=== PATIENT | female | born 1955 | race Caucasian/White ===

== ENCOUNTER 2023-08-13 14:23 | Outpatient (AMB) | payer MEDICARE, SELFPAY ==
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
== END 2023-08-13 16:11 | disposition home or self-care (01) ==
LOC: HO.HOP 14:23
PROVIDERS: PCP Registered Nurse Oncology; Visit Provider Clinical Nurse Specialist Psychiatric/Mental Health
DX: F33.1 Major depressive disorder, recurrent, moderate (principal); F43.12 Post-traumatic stress disorder, chronic
CPT/HCPCS: 99215

== ENCOUNTER → 2023-08-13 14:23 | Outpatient (BNVA) | payer MEDICARE, SELFPAY | PROVIDERS: PCP Registered Nurse Oncology; Visit Provider Clinical Nurse Specialist Psychiatric/Mental Health | DX: F33.1 Major depressive disorder, recurrent, moderate (principal); F43.12 Post-traumatic stress disorder, chronic | CPT/HCPCS: 99212 ==

== ENCOUNTER 2023-09-06 14:15 | Outpatient (AMB) | payer MEDICARE, SELFPAY ==
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
== END 2023-09-06 15:01 | disposition home or self-care (01) ==
LOC: HO.HOP 14:15
PROVIDERS: PCP Registered Nurse Oncology; Visit Provider Clinical Nurse Specialist Psychiatric/Mental Health
DX: R45.4 Irritability and anger (principal); F43.12 Post-traumatic stress disorder, chronic
CPT/HCPCS: 99215

== ENCOUNTER → 2023-09-06 14:15 | Outpatient (BNVA) | payer MEDICARE, SELFPAY | PROVIDERS: PCP Registered Nurse Oncology; Visit Provider Clinical Nurse Specialist Psychiatric/Mental Health | DX: R45.4 Irritability and anger (principal); F43.12 Post-traumatic stress disorder, chronic | CPT/HCPCS: 99212 ==

== ENCOUNTER 2023-10-05 11:03 | Outpatient (AMB) | payer MEDICARE, SELFPAY ==
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
== END 2023-10-05 11:43 | disposition home or self-care (01) ==
LOC: HO.HOP 11:03
PROVIDERS: PCP Registered Nurse Oncology; Visit Provider Clinical Nurse Specialist Psychiatric/Mental Health
DX: F43.12 Post-traumatic stress disorder, chronic (principal); F07.81 Postconcussional syndrome; F33.1 Major depressive disorder, recurrent, moderate
CPT/HCPCS: 99214

== ENCOUNTER → 2023-10-05 11:03 | Outpatient (BNVA) | payer MEDICARE, SELFPAY | PROVIDERS: PCP Registered Nurse Oncology; Visit Provider Clinical Nurse Specialist Psychiatric/Mental Health | DX: F43.12 Post-traumatic stress disorder, chronic (principal); F33.1 Major depressive disorder, recurrent, moderate; F07.81 Postconcussional syndrome | CPT/HCPCS: 99212 ==

== ENCOUNTER 2023-11-15 11:17 | Outpatient (AMB) | payer MEDICARE, SELFPAY ==
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
== END 2023-11-15 11:32 | disposition home or self-care (01) ==
LOC: HO.HOP 11:17
PROVIDERS: PCP Registered Nurse Oncology; Visit Provider Clinical Nurse Specialist Psychiatric/Mental Health
DX: F43.12 Post-traumatic stress disorder, chronic (principal); F33.1 Major depressive disorder, recurrent, moderate
CPT/HCPCS: 99443

== ENCOUNTER → 2023-11-15 11:17 | Outpatient (BNVA) | payer MEDICARE, SELFPAY | PROVIDERS: PCP Registered Nurse Oncology; Visit Provider Clinical Nurse Specialist Psychiatric/Mental Health ==

== ENCOUNTER 2023-11-27 16:00 | Outpatient (AMB) | payer MEDICARE, SELFPAY ==
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
== END 2023-11-27 16:51 | disposition home or self-care (01) ==
LOC: HO.HOP 16:00
PROVIDERS: PCP Registered Nurse Oncology; Visit Provider Clinical Nurse Specialist Psychiatric/Mental Health
DX: F43.12 Post-traumatic stress disorder, chronic (principal); F33.1 Major depressive disorder, recurrent, moderate
CPT/HCPCS: 99215

== ENCOUNTER → 2023-11-27 16:00 | Outpatient (BNVA) | payer MEDICARE, SELFPAY | PROVIDERS: PCP Registered Nurse Oncology; Visit Provider Clinical Nurse Specialist Psychiatric/Mental Health | DX: F43.12 Post-traumatic stress disorder, chronic (principal); F33.1 Major depressive disorder, recurrent, moderate | CPT/HCPCS: 99212 ==

== ENCOUNTER 2023-12-24 15:00 | Outpatient (AMB) | payer MEDICARE, SELFPAY ==
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
== END 2023-12-24 18:36 | disposition home or self-care (01) ==
LOC: HO.HOP 15:00
PROVIDERS: PCP Registered Nurse Oncology; Visit Provider Clinical Nurse Specialist Psychiatric/Mental Health
DX: F43.12 Post-traumatic stress disorder, chronic (principal); F33.1 Major depressive disorder, recurrent, moderate
CPT/HCPCS: 90833; 99214

== ENCOUNTER → 2023-12-24 15:00 | Outpatient (BNVA) | payer MEDICARE, SELFPAY | PROVIDERS: PCP Registered Nurse Oncology; Visit Provider Clinical Nurse Specialist Psychiatric/Mental Health | DX: F43.12 Post-traumatic stress disorder, chronic (principal); F33.1 Major depressive disorder, recurrent, moderate | CPT/HCPCS: 99212 ==

== ENCOUNTER 2024-02-11 13:33 | Outpatient (AMB) | payer MEDICARE, SELFPAY ==
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
== END 2024-02-11 14:14 | disposition home or self-care (01) ==
LOC: HO.HOP 13:34
PROVIDERS: PCP Registered Nurse Oncology; Visit Provider Clinical Nurse Specialist Psychiatric/Mental Health
DX: F43.12 Post-traumatic stress disorder, chronic (principal); F33.1 Major depressive disorder, recurrent, moderate
CPT/HCPCS: 90833; 99214

== ENCOUNTER → 2024-02-11 13:33 | Outpatient (BNVA) | payer MEDICARE, SELFPAY | PROVIDERS: PCP Registered Nurse Oncology; Visit Provider Clinical Nurse Specialist Psychiatric/Mental Health | DX: F33.1 Major depressive disorder, recurrent, moderate (principal); F43.12 Post-traumatic stress disorder, chronic | CPT/HCPCS: 99212 ==

== ENCOUNTER 2024-04-07 14:13 | Outpatient (AMB) | payer MEDICARE, SELFPAY ==
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
== END 2024-04-07 15:26 | disposition home or self-care (01) ==
LOC: HO.HOP 14:13
PROVIDERS: PCP Registered Nurse Oncology; Visit Provider Clinical Nurse Specialist Psychiatric/Mental Health
DX: F43.12 Post-traumatic stress disorder, chronic (principal); F33.1 Major depressive disorder, recurrent, moderate
CPT/HCPCS: 99214

== ENCOUNTER → 2024-04-07 14:13 | Outpatient (BNVA) | payer MEDICARE, SELFPAY | PROVIDERS: PCP Registered Nurse Oncology; Visit Provider Clinical Nurse Specialist Psychiatric/Mental Health | DX: F33.1 Major depressive disorder, recurrent, moderate (principal); F43.12 Post-traumatic stress disorder, chronic; Z71.89 Other specified counseling | CPT/HCPCS: 99212 ==

== ENCOUNTER → 2024-06-13 13:04 | Outpatient (BNVA) | payer MEDICARE, SELFPAY | PROVIDERS: PCP Registered Nurse Oncology; Visit Provider Clinical Nurse Specialist Psychiatric/Mental Health | DX: F43.12 Post-traumatic stress disorder, chronic (principal); F33.1 Major depressive disorder, recurrent, moderate | CPT/HCPCS: 99212 ==

== ENCOUNTER 2024-08-05 13:32 | Outpatient (AMB) | payer MEDICARE, SELFPAY ==
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
== END 2024-08-05 13:35 | disposition home or self-care (01) ==
LOC: HO.HOP 13:32
PROVIDERS: PCP Registered Nurse Oncology; Visit Provider Clinical Nurse Specialist Psychiatric/Mental Health
DX: F43.12 Post-traumatic stress disorder, chronic (principal); F33.1 Major depressive disorder, recurrent, moderate
CPT/HCPCS: 99214

== ENCOUNTER → 2024-08-05 13:32 | Outpatient (BNVA) | payer MEDICARE, SELFPAY | PROVIDERS: PCP Registered Nurse Oncology; Visit Provider Clinical Nurse Specialist Psychiatric/Mental Health | DX: F43.12 Post-traumatic stress disorder, chronic (principal); F33.1 Major depressive disorder, recurrent, moderate | CPT/HCPCS: 99212 ==

== ENCOUNTER 2024-09-23 13:37 | Outpatient (AMB) | payer MEDICARE, SELFPAY ==
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
--- OUTSIDE RECORDS SUMMARY | 2024-09-23 14:57 | XMS_ITS | Data Portability ---
Author Organization [facility] [employer], [employer] Address [address] [place] [address] [place] [address] Care Team Providers Care Obstetrical Tech Name Role Phone CELIA VILLAFANA Primary Care [...] 2020 LABORATORIES: Thyroid studies, comprehensive metabolic panel [facility]: Brain MRI with and without contrast, epilepsy protocol, for 2 events of depersonalization; attention to occipital/temporal regions. [facility] outpatient EEG wake and sleep for 2 events of depersonalization, attention to temporal/occipital regions. LABORATORIES ([facility] laboratory) Thyroid studies, CMP Follow-up after [...] without contrast November 30, 2020 per dictation [facility], Dr. Bulmaro Orta: No acute abnormality. [...] CMP, serum or plasma - K76.9 06/2020 [facility] (Centralized Electronic Ordering - All Locations), Patient Can Go To The Location Of Their Choice, 20:26:31 TSH, serum or plasma - E07.9 2020 [facility] (Centralized Electronic Ordering - All Locations), Patient Can Go To The Location Of Their Choice, 23:49:36 T4, free, serum - E07.9 2020 [facility] (Centralized Electronic Ordering - All Locations), Patient Can Go To The Location Of Their Choice, 23:49:35 Referral None recorded. Procedures electroence phalogram (EEG); including recording awake and drowsy (PROC) - EEG wake and sleep for 2 events of depersonali zation, attention to temporal/oc cipital regions; and recent onset myoclonus. 2020 [facility] (P[facility] Neuro Lab), [address] [place], [address], 14:04:17 Surgeries None recorded. Imaging MRI, brain, w/wo contrast - Brain MRI with and without contrast, epilepsy protocol, for 2 events of depersonali zation; attention to occipital/t emporal regions. 2020 [facility] ([facility]), [address] [place], [address], 11:16:40 Medication Orders None recorded. Patient TargetsNo [...] 11/30/1911/29/2020 [facility] EHENS NICOLETTE METAB OLIC PANL BUN 16 mg/dL (8-23) [...] Go To The Location Of Their Choice, [address] 11/29/2020 23:49:36 12/02/19 21 11/30/2020 MRI, brain , w/wo contr ast No observ ation record ed. [address] [facility] ([facility]) [address] [place], [address], 12/02/2020 08:55:39 12/02/19 21 11/30/2020 MRI, brain , w/wo contr ast No observ ation record ed. [address] [place], [address], 12/02/2020 08:55:39 12/02/19 21 11/30/2020 MRI, brain + brain stem, w/wo contr ast [facility] Access ion Number : [id number] Patipietro t Name: Antonino Mendez Record Number : [id number] Date of : 1955 Date of Exam: 2020 Referr ing Physic finn: Carlos Lynn MD Neurol [facility] [address] [place] [address] Exam: MR Brain (C-/C+ ) CPT 88113 Room Descri ption: Tre Siem Espr 1.5 [...] onical ly Signed By: Bulmaro Orta MD [facility] ([facility]) [address] [place], [address], 12/01/2020 18:58:31 12/09/19 21 12/08/2020 elect roenc ephal ogram (EEG) ; inclu ding recor ding awake and drows y (PROC ) No observ ation record ed. [email or web address] [facility] (P[facility]) [address] [place], [address], 12/09/2020 12:53:19 02/04/20 21 12/06/2020 elect roenc ephal ogram (EEG) ; inclu ding recor ding awake and drows y (PROC ) No observ ation record ed. [email or web address] Not Available 02/09 13:47:06 Result Notes None recorded. Procedures Surgical History Date Name Laterality Status Provider Name and Address Organization Details Recorded Time 01/19/20 DATA REVIEW completed Chon Lynn MD [address] [place] [address] [place], [address], [facility] 01/18/2021 09:45:13 Appendectomy completed Alia Collins [facility] 11/16/2020 12:30:21 Knee arthroscopy/surg nahid completed Alia Collins MA [facility] 11/16/2020 12:30:30 Imaging Results Imaging Date Name Status LastModified by Organization Details LastModified Time 11/30/2020 MRI, brain, w/wo contrast completed [email or web address] [facility] ([facility]) [address] [place], [address], 12/02/2020 08:55:39 11/30/2020 MRI, brain, w/wo contrast completed [email or web address] [facility] [address] [place], [address], 12/02/2020 08:55:39 11/30/2020 MRI, brain + brain stem, w/wo contrast completed [email or web address] [facility] ([facility]) [address] [place] [address], [address], 12/01/2020 18:58:31 12/08/2020 electroencephalogram (EEG); including recording awake and drowsy (PROC) completed [email or web address] (P[facility] Lab) [address] [place] [address], [address], 12/09/2020 12:53:19 12/06/2020 electroencephalogram (EEG); including recording awake and drowsy (PROC) [facility] Information not available 02/09/2021 13:47:06 Procedure Notes [...] Available fish oil 400 mg-flaxseed 400 mg-prim,blk business center manager,borag oils 200 mg capsule Take by oral route. active Not Available Not Available Not Available Vitals Date Recorded Body height Body mass index (BMI) Body weight Respiratory rate Provider Name and Address Organization Details Last Updated DateTime 11/16/2020 167.64 cm 29.9 kg/m2 54682.59 g 12 /min Alia Collins [facility] 11/16/2020 12:31:38 Social History Question Answer Notes LastModified by Organizat ion Details LastModified Time Tobacco Smoking Status Former Smoker Alia saleh [facility] 11/16/2020 12:29:21 What Is Your Level Of [...] Code Diagnosis Note 1068 Chon Lynn MD [facility] [address] [place] [address] [place] [address] 11/16/2020 12:19:13 11/16/2020 14:10:07 Focal onset epileptic seizure 97857823 G40.109 Myoclonus 92851520 G25.3 1735 Chon Lynn MD [facility] [address] [place] [address] [place] JUANITA [address] 01/18/2021 09:16:44 01/18/2021 10:25:01 Myoclonus [id number] G25.3 Health Concerns Section Related Observation LastModified by Organization Detai ls LastModified Time None Recorded Concern Status LastModified by Organization Details LastModified Time None Recorded Advance Directives Directive None Recorded Payers Encounter Date Sequence Insurance Name Policy Number Policy Christensen Covered Member ID Christensen Member ID Guarantor Name 11/16/2020 1 [place] [employer] Gricel Jansenall [id number] Gricel Jansenall 01/18/2021 1 [place] Gricel Swanson Feliz [id number] Gricel Jansenall 01/18/2021 2 [place] [id number] Gricel Jansenall [id number] Gricel Piper Notes Date Note Type [...] 2017, that she snored. Chon Lynn MD [address] [place], [place] [address], [address], [place] [facility] 11/16/2020 13:36:45 01/18/2021 text/html Follow up of [...] 2018, that she snored. Chon Lynn MD [address] [place] [address] [place], [address], [facility] 01/18/2021 17:16:57 OBGyn Episode No OBEpisode recorded.
== END 2024-09-23 14:13 | disposition home or self-care (01) ==
LOC: HO.HOP 13:37
PROVIDERS: PCP Registered Nurse Oncology; Visit Provider Clinical Nurse Specialist Psychiatric/Mental Health
DX: F43.12 Post-traumatic stress disorder, chronic (principal); F33.1 Major depressive disorder, recurrent, moderate
CPT/HCPCS: 99214

== ENCOUNTER → 2024-09-23 13:37 | Outpatient (BNVA) | payer MEDICARE, SELFPAY | PROVIDERS: PCP Registered Nurse Oncology; Visit Provider Clinical Nurse Specialist Psychiatric/Mental Health | DX: F43.12 Post-traumatic stress disorder, chronic (principal); F33.1 Major depressive disorder, recurrent, moderate | CPT/HCPCS: 99212 ==

== ENCOUNTER 2024-11-10 15:38 | Outpatient (AMB) | payer MEDICARE, SELFPAY ==
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
--- OUTSIDE RECORDS SUMMARY | 2024-11-10 17:06 | XMS_ITS | Data Portability ---
Author Organization Formerly [facility] [employer], [facility] Address [address] [place] [address] [place] [address] Care Team Providers Care Balloon Sander Name Role Phone CELIA VILLAFANA Primary Care Provider Unavailabl e CELIA VILLAFANA Referring Provider Unavailable CELIA VILLAFANA Primary Care Provider [phone] Assessment Encounter Date Assessment Date Assessment LastModified [...] our encounter she mentions that she has imbalance she wonders if primary care has talked about [...] with any heart monitor abnormality. PLAN Gricel Feliz November 16, 2020 LABORATORIES: Thyroid studies, comprehensive metabolic panel [facility]: Brain MRI with and without contrast, epilepsy protocol, for 2 events of depersonalization; attention to occipital/temporal regions. [facility] outpatient EEG wake and sleep for 2 events of depersonalization, attention to temporal/occipital regions. LABORATORIES ([facility] laboratory) Thyroid studies, CMP Follow-up after [...] without contrast November 30, 2020 per dictation [facility], Dr. Bulmaro Orta: No acute abnormality. Bilateral medial temporal lobes normal in volume and signal. Diffuse, central >cortical atrophy thought age-related. Patchy and small areas of Mild T2/FLAIR increased signal in bilateral periventricular and [...] vessel disease also. EEG findings have some localization and the right temporoparietal brain region. There is some correlation with brain MRI white matter disease where there is is asymmetric mild white matter disease in the shannon radiata in the right in the temporal parietal region (coronal FLAIR images ). DEPERSONALIZATION EPISODES: I emphasized to the patient that I do not believe any of these findings relate to her episodes of depersonalization. They have not recurred. They become less likely related to seizure which was very low likelihood a priori, before the investigations. Thyroid dysfunction as association but thyroid studies are normal. The default and most common etiology psychiatric now becomes the default diagnosis. Although she does not carry diagnosis where depersonalization is an increased risk schizophrenia or bipolar disorder emotional stress also confers risk and she has [...] our encounter she mentions that she has imbalance she wonders if primary care has talked about [...] 2021 Follow-up as needed for neurological issues. maria m Not available 01/18/2021 10:19:48 Plan of Treatment Reminders Order Date Submit Date Provider Last Modified By Organization Details Last Modified Time Details Appointments None recorded. Lab CMP, serum or plasma - K76.9 2020 021 PATRICIA [facility] (Centralized Electronic Ordering - All Locations), Patient Can Go To The Location Of Their Choice, [address] 20:26:31 TSH, serum or plasma - E07.9 2020 LEITER [facility] (Centralized Electronic Ordering - All Locations), Patient Can Go To The Location Of Their Choice, 23:49:36 T4, free, serum - E07.9 2020 LEITER [facility] (Centralized Electronic Ordering - All Locations), Patient Can Go To The Location Of Their Choice, 23:49:35 Referral None recorded. Procedures electroence phalogram (EEG); including recording awake and drowsy (PROC) - EEG wake and sleep for 2 events of depersonali zation, attention to temporal/oc cipital regions; and recent onset myoclonus. 2020 [facility] (Pulmonary And Neuro Lab), [address] [place], [address], 14:04:17 Surgeries None recorded. Imaging MRI, brain, w/wo contrast - Brain MRI with and without contrast, epilepsy protocol, for 2 events of depersonali zation; attention to occipital/t emporal regions. 2020 [facility] ([facility]), [address] [place], [address], 11:16:40 Medication Orders None recorded. Patient TargetsNo [...] 11/29/2020 COMPR EHENS NICOLETTE METAB OLIC PANL sodium [...] 20:26:11/30/1911/29/2020 COMPR EHENS NICOLETTE METAB OLIC PANL chloride [...] 11/29/2020 COMPR EHENS NICOLETTE METAB OLIC PANL calcium [...] 11/29/2020 COMPR EHENS NICOLETTE METAB OLIC PANL total protein 6.4 gm/dL (6.2-8 .2) Not Available [facility] (Centralized Electronic Ordering - All Locations) Patient Can Go To The Location Of Their Choice, 11/29/2020 20:26:11/30/1911/29/2020 COMPR EHENS NICOLETTE METAB OLIC PANL Ag [...] 11/29/2020 COMPR EHENS NICOLETTE METAB OLIC PANL ALT [...] 11/29/2020 COMPR EHENS NICOLETTE METAB OLIC PANL est [...] To The Location Of Their Choice, 11/29/2020 23:49:36 12/02/19 21 11/30/2020 MRI, brain , w/wo contr ast No observ ation record ed. [address] [facility] ([facility]) [address] [place], [address], 12/02/2020 08:55:39 12/02/19 21 11/30/2020 MRI, brain , w/wo contr ast No observ ation record ed. [address] [place], [address], 12/02/2020 08:55:39 12/02/19 21 11/30/2020 MRI, brain + brain stem, w/wo contr ast [facility] Access ion Number : [id number] Patien t Name: Antonino Mendez Record Number : [id number] Date of : 1955 Date of Exam: 2020 Referr ing Physic finn: Carlos Lynn MD Neurol [facility] [address] [address] Exam: MR Brain (C-/C+ ) CPT 25127 Room Descri ption: Tre Siem Espr 1.5 [...] ally. Electr onical ly Signed By: Bulmaro franz [facility] ([facility]) [address] [place], [address], 12/01/2020 18:58:31 12/09/19 21 12/08/2020 elect roenc ephal ogram (EEG) ; inclu ding recor ding awake and drows y (PROC ) No observ ation record ed. [email or web address] [facility] (Pulmonary And Neuro Lab) [address] [place], [address], 12/09/2020 12:53:19 02/04/20 21 12/06/2020 elect roenc ephal ogram (EEG) ; inclu ding recor ding awake and drows y (PROC ) No observ ation record ed. [email or web address] Not Available 02/09 13:47:06 Result Notes Documentation Provider Name and Address Organization Details Recorded Time Mri, Brain + Brain Stem, W/wo Contrast : [facility] Accession Number: [id number] Patient Name: Gricel Piper Date of : 1955 Date of Exam: 11-30-2020 Referring Physician: Chon Lynn MD Neurology- [facility] [address] [facility] [address] [place] [address] Exam: MR Brain (C-/C+) CPT 59810 Room Description: Tre Stanley Espr 1.5 MRI of the brain without and with contrast. HISTORY: Balance issues for a year. Dizziness. Extremity weakness. Bilateral tinnitus. Left ear hearing loss. COMPARISON: None. FINDINGS: The ventricles, cisterns and sulci appear diffusely prominent consistent with generalized age related atrophy, more centrally than cortically. No hydrocephalus. There is no acute intracranial hemorrhage, tumor or infarct. Patchy and small areas of hyperintense T2/FLAIR signals are seen in the periventricular and subcortical white matters bilaterally as well as central yoselyn. The findings are nonspecific and could represent chronic small vessel ischemic disease. Please correlate clinically. Postcontrast images show no abnormal enhancement. Bilateral medial temporal lobes are normal in volume and signal intensities. There are normal flow-voids within major intracranial vessels. The paranasal sinuses are clear. IMPRESSION: No acute pathology is seen in the brain. Generalized age-related atrophy, more centrally than cortically. Mild bilateral white matter disease and abnormal signals in the yoselyn are nonspecific and could represent chronic small vessel ischemic disease. Please correlate clinically. Electronically Signed By: Bulmaro Lynn MD [address] [place] [address] [place], [address], [facility] 12/01/2020 18:58:31 Procedures Surgical History Date Name Laterality Status Provider Name and Address Organization Details Recorded Time 01/19/20 21 DATA REVIEW completed Chon Lynn MD [address] [place] [address] [place], [address], [facility] 01/18/2021 09:45:13 Appendectomy completed Alia Karina [facility] 11/16/2020 12:30:21 Knee arthroscopy/surg nahid completed Alia Collins [facility] 11/16/2020 12:30:30 Imaging Results None recorded. Procedure Notes None recorded. Medical Equipment None [...] Available fish oil 400 mg-flaxseed 400 mg-prim,blk canal boat captain,borag oils 200 mg capsule Take by oral route. active Not Available Not Available Not Available Vitals Date Recorded Body height Body mass index (BMI) Body weight Respiratory rate Provider Name and Address Organization Details Last Updated DateTime 11/16/2020 167.64 cm 29.9 kg/m2 83996.59 g 12 /min Alia Collins [facility] 11/16/2020 12:31:38 Social History Question Answer Notes LastModified by [employer] Details LastModified Time Tobacco Smoking Status Former Smoker Alia saleh [facility] 11/16/2020 12:29:21 What Is Your Level Of Caffeine Consumption? None Information not available 11/16/2020 Which Of Your Hands Is Dominant? Right Information not available 11/16/2020 What Is Your Relationship Status? Single Information not available 11/16/2020 Sex: Unknown Functional Status Question Answer Note LastModified by [employer] Details LastModified Time What is your level of alcohol consumption? Occasional Information not available 11/16/2020 Mental Status None recorded. Family History Relationship [...] Code Diagnosis Note 1068 Chon Lynn MD [facility] [address] [place] [address] [place] [address] 11/16/2020 12:19:13 11/16/2020 14:10:07 Focal onset epileptic seizure 26675203 G40.109 Myoclonus 36842017 G25.3 1735 hCon Lynn MD [facility] [address] [place] [address] [place] [address] 01/18/2021 09:16:44 01/18/2021 10:25:01 Myoclonus 42470886 G25.3 Health Concerns Section Related Observation LastModified by Organization Detai ls LastModified Time None Recorded Concern Status LastModified by Organization Details LastModified Time None Recorded Advance Directives Directive None Recorded Payers Insurance Date Sequence Insurance Name Policy Number Policy Christensen Covered Member ID Christensen Member ID Guarantor Name 01/18/2021 1 [place] [employer] Gricel Swanson Feliz [id number] Gricel Feliz 01/26/2021 2 [place] [id number] Gricel G Feliz [id number] Gricel Jansenall 01/18/2021 2 [place] Gricel Piper Notes Date Note Type Note [...] first mass she had been to since 2018 at that having been for her . While [...] during the day which she ascribes to depression she is also depressed, despite being on current [...] 2017, that she snored. Chon Lynn MD [address] [place] [address] [place], [address], [facility] 11/16/2020 13:36:45 01/18/2021 text/html Follow up [...] first mass she had been to since 2018 at that having been for her . While [...] during the day which she ascribes to depression she is also depressed, despite being on current [...] 2017, that she snored. Chon Lynn MD [address] [place] [address] [place], [address], [facility] 01/18/2021 17:16:57 OBGyn Episode No OBEpisode recorded.
== END 2024-11-10 15:38 | disposition home or self-care (01) ==
LOC: HO.HOP 15:38
PROVIDERS: PCP Registered Nurse Oncology; Visit Provider Clinical Nurse Specialist Psychiatric/Mental Health
DX: F43.12 Post-traumatic stress disorder, chronic (principal); F33.1 Major depressive disorder, recurrent, moderate
CPT/HCPCS: 99214

== ENCOUNTER → 2024-11-10 15:38 | Outpatient (BNVA) | payer MEDICARE, SELFPAY | PROVIDERS: PCP Registered Nurse Oncology; Visit Provider Clinical Nurse Specialist Psychiatric/Mental Health | DX: F43.12 Post-traumatic stress disorder, chronic (principal); F33.1 Major depressive disorder, recurrent, moderate | CPT/HCPCS: 99212 ==

== ENCOUNTER 2025-01-15 16:59 | Outpatient (AMB) | payer MEDICARE, SELFPAY ==
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
--- OUTSIDE RECORDS SUMMARY | 2025-01-15 17:02 | XMS_ITS | Encounter Summary ---
Author Organization [facility] Address [address] [place] [address] Phone Care Team Providers Care Brick Paver Name Role Phone Nadeem Scott MD Primary Care Provider [phone] Reason for Referral * Physical Therapy (Routine) - Closed Specialty Diagnoses / Procedures Referred By Contac t Referred To Contact Physical Therapy Diagnoses Encounter for rehabilitation Chon Vasquez MD Phone: tel: fax: [address] [address] Phone: tel: Referral ID Status Reason Start Date Expiration Date Visits Re quested Visits Authorized [id number] Closed 10/08/2023 10/07/2024 1 1 Encounter Details Date Type Department Care Team (Latest Contact Info) Description 10/08/2023 Transcribe Orders [facility] [address] [place] [address] Chon Vasquez MD [address] [place] [address] Encounter for rehabilitation (Primary Dx) Social History Tobacco Use Types Packs/Day Years Used Date Smoking Tobacco: Former Smokeless Tobacco: Never Alcohol Use Standard Drinks/Week Comments Yes 0 (1 standard drink = 0.6 oz pur e alcohol) occasional Education Answer Date Recorded Are you interested in more education? Not on jhoan e 09/15/2022 Are you concerned about learning? Not on file 09/15/2022 No 09/15/2022 No 09/15/2022 Digital Access Answer Date Recorded No 10/16/2022 No 10/16/2022 No 10/16/2022 Reliable internet access at home? Not on file 10/16/2022 Device with a working camera? Not on file Comments Unknown Sex and Gender Information Value Date Recorded Sex Assigned at Not on file Legal Sex Female 3:00 AM EDT Gender Identity Not on file Sexual Orientation Not on file documented as of this encounter Plan of Treatment Scheduled Referrals Name Type Priority Associated Diagnoses Orde r Schedule Ambulatory referral to [facility] Physical Therapy Outpatient Referral Routine Encounter for rehabilitation Ordered: 10/08/2023 documented as of this encounter Visit Diagnoses Diagnosis Encounter for rehabilitation- Primary documented in this encounter Care Teams Brick Paver Relationship Specialty Start Date End Date Nadeem Scott MD [address] [place] [address] PCP - General Internal Medicine 09/22/16 documented as of this encounter Additional Source Comments The information contained in this document represents components of the legal health record. It is not the complete legal health record.[facility]
--- OUTSIDE RECORDS SUMMARY | 2025-01-15 17:02 | XMS_ITS | Clinical Summary ---
Author Organization [facility] Address [address] [place] [address] Phone Care Team Providers Care Planting Supervisor Name Role Phone Nadeem Scott MD Primary Care Provider [phone] Allergies Active Allergy Reactions Criticality Noted Date Comments Sulfa (Sulfonamide Antibiotics) 10/20 Rash Medications GABAPENTIN ORAL Take 300 mg by mouth 3 (three) times a day. Active DULOXETINE HCL (CYMBALTA ORAL) Take by mouth. Active ZOLPIDEM TARTRATE (AMBIEN ORAL) Take by mouth. Active BUPROPION HCL (WELLBUTRIN ORAL) Take by mouth. Active FLAXSEED OIL ORAL Take by mouth. Active C/SOURCHERRY/MILAGRO JUSTIN/GRAPE SEED (TART [place] ORAL) Take by mouth. Active TURMERIC ROOT EXTRACT ORAL Take by mouth. Active MULTIVITAMIN (MULTIPLE VITAMIN ORAL) Take by mouth. Active DOCUSATE SODIUM (COLACE ORAL) Take by mouth. Active CALCIUM CITRATE/VITAMIN D3 (CITRACAL REGULAR ORAL) Take by mouth. Active fluorometholone (FML LIQUIFILM) 0.1 % ophthalmic suspension Place 1 drop into each eye 2 (two) times a day. 5 mL 10 11/13/2016 Active Active Problems Problem Noted Date Diagnosed Date Right knee pain 07/18/2019 Family History Medical History Relation Comments Lung cancer Brother Hypertension Father Hypertension Mother Diabetes Paternal Grandfather Relation Status Comments Brother Father Mother Paternal Grandfather Social History Tobacco Use Types Packs/Day Years [...] on file Sexual Orientation Not on file Last Filed Vital Signs Vital Sign Reading Time Taken Comments Blood Pressure 144/80 11/10/2019 9:36 AM EDT Pulse 79 11/10/2019 9:36 AM EDT Temperature - - Respiratory Rate - - Oxygen Saturation - - Inhaled Oxygen Concentration - - Weight 86.8 kg (191 lb 6.4 oz) 11/10/2019 9:36 A M EDT Height 165.1 cm (5' 5 ) 11/10/2019 9:36 AM EDT Body Mass Index 31.85 11/10/2019 9:36 AM EDT Plan of Treatment Health Maintenance Due Date Last Done Comments LIPID PANEL 1954 DEPRESSION SCREENING 1966 SMOKING Hx and SMOKELESS TOB ACCO SCREENING 08/10/1967 HEPATITIS C SCREENING 1972 MAMMOGRAM 1994 COLOGUARD 08/10/1999 COLONOSCOPY 08/10/1999 COLORECTAL CANCER SCREENING 08/10/1999 FIT TEST 08/10/1999 FOBT 08/10/1999 SIGMOIDOSCOPY 08/10/1999 VIRTUAL COLONOSCOPY 08/10/1999 PNEUMOCOCCAL VACCINES (50+ y ears) (1 of 1 - PCV) 2004 ZOSTER VACCINES (2 of 3) 09/06/2016 07/12/2016 OSTEOPOROSIS SCREENING INITI AL (ONE-TIME) 08/10/2019 COVID-19 VACCINE (2 - 2023-2 5 season) 2024 09/16/2020 Adult Td,Tdap Booster 06/19/2029 06/19/2019 RSV VACCINE (1 - 1-dose 75+ series) 2029 HEPATITIS A VACCINES Aged Out No long er eligible based on patient's age to complete this topic HIB VACCINES Aged Out No longer eligi ble based on patient's age to complete this topic MENINGOCOCCAL VACCINES (ACWY) Aged Out No longer eligible based on patient's age to complete this topic MENINGOCOCCAL VACCINES (B) Aged Out N o longer eligible based on patient's age to complete this topic Medical Devices Not on file Insurance MEDICARE PART A & B Member Subscriber Plan / Payer (Ef fective 2014-Present) Name:Sheri Azevedo Member ID:[id number] Relation to Subscriber:Self Name:Sheri Azevedo Subscriber ID:[id number] Payer ID:[id number] Group ID:Not on file Type:Medicare Address: [facility] [employer] [facility] [address] [place] [phone] [facility] MEDEX SUPPLEMENT MEDICARE PART A & B [employer] MEDEX SUPPLEMENT MEDICARE PART A & B [employer] MEDEX SUPPLEMENT MEDICARE PART A & B [employer] MEDEX SUPPLEMENT MEDICARE PART A & B [employer] MEDEX SUPPLEMENT MEDICARE PART A & B [employer] MEDEX SUPPLEMENT MEDICARE PART A & B [employer] MEDEX SUPPLEMENT MEDICARE PART A & B [employer] MEDEX SUPPLEMENT MEDICARE PART A & B [employer] MEDEX SUPPLEMENT Care Teams Planting Supervisor Relationship Specialty Start Date End Date Nadeem Scott MD [address] [place] [id number] PCP - General Internal Medicine 09/22/16 Additional Source Comments The information contained in this document represents components of the legal health record. It is not the complete legal health record.[facility]
--- OUTSIDE RECORDS SUMMARY | 2025-01-15 17:02 | XMS_ITS | Encounter Summary ---
Author Organization [facility] Address [address] [place] [address] Phone Care Team Providers Care Campus Ambassador Name Role Phone Nadeem Scott MD Primary Care Provider [phone] Reason for Referral * Physical Therapy (Routine) - Closed Specialty Diagnoses / Procedures Referred By Contac t Referred To Contact Physical Therapy Diagnoses Encounter for rehabilitation Angelo Patel MD [address] [place] [address] Phone: tel: fax: [address] [address] Phone: tel: Referral ID Status Reason Start Date Expiration Date Visits Re quested Visits Authorized [id number] Closed 12/28/2020 05/20/2021 88 88 Encounter Details Date Type Department Care Team (Latest Contact Info) Description 12/28/2020 Transcribe Orders [facility] [address] [place] [address] Unknown, Jordon, Encounter for rehabilitation (Primary Dx) Social History Tobacco Use Types Packs/Day Years Used Date Smoking Tobacco: Former Smokeless Tobacco: Never Alcohol Use Standard Drinks/Week Comments Yes 0 (1 standard drink = 0.6 oz pur e alcohol) occasional Comments Unknown Sex and Gender Information Value Date Recorded Sex Assigned at Not on file Legal Sex Female 3:00 AM EDT Gender Identity Not on file Sexual Orientation Not on file documented as of this encounter Plan of Treatment Not on file documented as of this encounter Procedures Procedure Name Priority Date/Time Associated Diagnosis Comments AMB REFERRAL TO [facility] PHYSICAL THERAPY Routine 02/08/2021 3:03 PM EDT Encounter for rehabilitation documented in this encounter Results * Ambulatory referral to [facility] Physical Therapy (02/08/2021 3:03 PM EDT) Other us Angelo Patel MD AMB [facility] REFERRALS Final R esult documented in this encounter Visit Diagnoses Diagnosis Encounter for rehabilitation- Primary documented in this encounter Care Teams Campus Ambassador Relationship Specialty Start Date End Date Nadeem Scott MD [address] [place] [address] PCP - General Internal Medicine 09/22/16 documented as of this encounter Additional Source Comments The information contained in this document represents components of the legal health record. It is not the complete legal health record.[facility]
== END 2025-01-15 17:00 | disposition home or self-care (01) ==
LOC: HO.HOP 16:59
PROVIDERS: PCP Registered Nurse Oncology; Visit Provider Clinical Nurse Specialist Psychiatric/Mental Health
DX: F43.12 Post-traumatic stress disorder, chronic (principal); F33.1 Major depressive disorder, recurrent, moderate
CPT/HCPCS: 99214

== ENCOUNTER 2025-02-16 13:39 | Outpatient (AMB) | payer MEDICARE, SELFPAY ==
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
--- OUTSIDE RECORDS SUMMARY | 2025-02-16 15:16 | XMS_ITS | Encounter Summary ---
Author Organization [facility] Address [address] [place] [address] Phone Care Team Providers Care Project Manager Industrial Name Role Phone Nadeem Scott MD Primary Care Provider [phone] Reason for Referral * Physical Therapy (Routine) - Closed Specialty Diagnoses / Procedures Referred By Contac t Referred To Contact Physical Therapy Diagnoses Encounter for rehabilitation Chon Vasquez MD Phone: tel: fax: [address] [address] Phone: tel: Referral ID Status Reason Start Date Expiration Date Visits Re quested Visits Authorized [id number] Closed 10/08/2023 10/07/2024 1 1 Encounter Details Date Type Department Care Team (Latest Contact Info) Description 10/08/2023 Transcribe Orders [facility] [address] [place] [address] Chon Vasquez MD [address] [place] [address] Encounter for rehabilitation (Primary Dx) Social History [...] Diagnoses Orde r Schedule Ambulatory referral to [facility] Physical Therapy Outpatient Referral Routine Encounter for rehabilitation Ordered: 10/08/2023 documented as of this encounter Visit Diagnoses Diagnosis Encounter for rehabilitation- Primary documented in this encounter Care Teams Project Manager Industrial Relationship Specialty Start Date End Date Naedem Scott MD [address] [place] [address] PCP - General Internal Medicine 09/22/16 documented as of this encounter Additional Source Comments The information contained in this document represents components of the legal health record. It is not the complete legal health record.[facility]
--- OUTSIDE RECORDS SUMMARY | 2025-02-16 15:16 | XMS_ITS | Encounter Summary ---
Author Organization [facility] Address [address] [place] [address] Phone Care Team Providers Care Check Processing Clerk Name Role Phone Nadeem Scott MD Primary Care Provider [phone] Reason for Referral * Physical Therapy (Routine) - Closed Specialty Diagnoses / Procedures Referred By Contac t Referred To Contact Physical Therapy Diagnoses Encounter for rehabilitation Angelo Patel MD [address] [place] [address] Phone: tel: fax: [address] [address] Phone: tel: Referral ID Status Reason Start Date Expiration Date Visits Re quested Visits Authorized [id number] Closed 12/28/2020 05/20/2021 88 88 Encounter Details Date Type Department Care Team (Latest Contact Info) Description 12/28/2020 Transcribe Orders [facility] Rehabilitation [facility] [address] [place] [address] Unknown, Jordon, Encounter for rehabilitation (Primary Dx) [...] Date/Time Associated Diagnosis Comments AMB REFERRAL TO [facility] PHYSICAL THERAPY Routine 02/08/2021 3:03 PM EDT Encounter for rehabilitation documented in this encounter Results * Ambulatory referral to [facility] Physical Therapy (02/08/2021 3:03 PM EDT) Other us Angelo Patel MD AMB [facility] REFERRALS Final R esult documented in this encounter Visit Diagnoses Diagnosis Encounter for rehabilitation- Primary documented in this encounter Care Teams Check Processing Clerk Relationship Specialty Start Date End Date Nadeem Scott MD [address] [place] [address] PCP - General Internal Medicine 09/22/16 documented as of this encounter Additional Source Comments The information contained in this document represents components of the legal health record. It is not the complete legal health record.[facility]
--- OUTSIDE RECORDS SUMMARY | 2025-02-16 15:16 | XMS_ITS | Clinical Summary ---
Author Organization [facility] Address [address] [place] [address] Phone Care Team Providers Care Client Customer Manager Name Role Phone Nadeem Scott MD Primary Care Provider [phone] Allergies Active Allergy Reactions Criticality Noted Date [...] (2 - 2023-2 5 season) 2024 09/16/2020 INFLUENZA VACCINE (#1) 2024 Adult Td,Tdap Booster 06/19/2029 06/19/2019 RSV VACCINE [...] Payer (Ef fective 2014-Present) Name:Sheri Azevedo Member ID:[id number] Relation to Subscriber:Self Name:Sheri Azevedo Subscriber ID:[id number] Payer ID:[id number] Group ID:Not on file Type:Medicare Address: [facility] [employer] [address] [facility] [place] [address] [facility] MEDEX SUPPLEMENT MEDICARE PART A & B [employer] MEDEX SUPPLEMENT MEDICARE PART A & B [employer] MEDEX SUPPLEMENT MEDICARE PART A & B Member Subscriber Plan / Payer (Ef fective 2014-Present) Name:Sheri Azevedo Member ID:[id number] Relation to Subscriber:Self Name:Sheri Azevedo Subscriber ID:[id number] Payer ID:[id number] Group ID:Not on file Type:Medicare Address: [facility] [employer] [address] [facility] [address] [place], [place] [id number] [employer] MEDEX SUPPLEMENT MEDICARE PART A & B [employer] MEDEX SUPPLEMENT MEDICARE PART A & B [employer] MEDEX SUPPLEMENT MEDICARE PART A & B [employer] MEDEX SUPPLEMENT MEDICARE PART A & B [employer] MEDEX SUPPLEMENT MEDICARE PART A & B [employer] MEDEX SUPPLEMENT Care Teams Client Customer Manager Relationship Specialty Start Date End Date Nadeem Scott MD [address] [place] [address] PCP - General Internal Medicine 09/22/16 Additional Source Comments The information contained in this document represents components of the legal health record. It is not the complete legal health record.[facility]
== END 2025-02-16 15:44 | disposition home or self-care (01) ==
LOC: HO.HOP 13:39
PROVIDERS: PCP Registered Nurse Oncology; Visit Provider Clinical Nurse Specialist Psychiatric/Mental Health
DX: F43.12 Post-traumatic stress disorder, chronic (principal); F33.1 Major depressive disorder, recurrent, moderate
CPT/HCPCS: 99214

== ENCOUNTER → 2025-02-16 13:39 | Outpatient (BNVA) | payer MEDICARE, SELFPAY | PROVIDERS: PCP Registered Nurse Oncology; Visit Provider Clinical Nurse Specialist Psychiatric/Mental Health | DX: F43.12 Post-traumatic stress disorder, chronic (principal); F33.1 Major depressive disorder, recurrent, moderate | CPT/HCPCS: 99212 ==